=== PATIENT | male | born 1980 | race Caucasian/White ===

== ENCOUNTER 2016-10-19 14:53 | Emergency (ER) | payer BC ==
[2016-10-19 15:11] VITALS: O2SAT 98
--- NOTE | 2016-10-19 15:16 | ERPHSYRPT ---
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 states the bleeding is uncontrolled. denies pain. Triage Nursing Assessment: PT IS AOX3, AMBULATORY TO COT WITH NO DIFFICULTIES, RESPS ARE EASY AND NON LABORED, SKIN IS PWD, PULSES ARE STRONG AND REGULAR. PT T -SHIRT IS SATURATED WITH BLOOD WELL A TOWEL FROM HOME. A MOLE IS NOTED TO THE BACK THAT HAS BEEN LACERATED WHILE PT WAS SHAVING. 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 ACTIVE BLEEDING IS PRESENT TO THE SITE. Physician History: 36 y/o male comes to the ER with bleeding of the right mid back after shaving his back with a blade and sliced a skin tag. Pt admits that he has not been able to control the bleeding. Pt is not on any blood thinners and has no history of bleeding disorders. Pt also denies any pain of the back. Pt does not remember the last time he had a tetanus shot. Timing/Duration: today Allergies/Adverse Reactions: No Known Drug Allergies Allergy (Unverified 10/19/16 15:12) Home Medications: No Reportable Medications [No Reported Medications] 10/19/16 [History] Hx Tetanus, Diphtheria Vaccination/Date Given: No Hx Influenza Vaccination/Date Given: No Hx Pneumococcal Vaccination/Date Given: No Immunizations Up to Date: Yes - Review of Systems Constitutional: No Fever, No Chills Eyes: No Symptoms Ears, Nose, & Throat: No Symptoms Respiratory: No Cough, No Dyspnea Cardiac: No Chest Pain, No Edema, No Syncope Abdominal/Gastrointestinal: No Abdominal Pain, No Nausea, No Vomiting, No Diarrhea Genitourinary Symptoms: No Dysuria Musculoskeletal: No Back Pain, No Neck Pain Skin: Skin Lesions, No Rash Neurological: No Dizziness, No Focal Weakness, No Sensory Changes Psychological: No Symptoms Endocrine: No Symptoms Hematologic/Lymphatic: Easy Bleeding All Other Systems: Reviewed and Negative - Social History Smoking Status: Never smoker Patient Lives Alone: No - Nursing Vital Signs Nursing Vital Signs: Initial Vital Signs Temperature 97.9 F Respiratory Rate 18 Blood Pressure [Right Arm] 160/107 Pain Intensity 0 - Physical Exam General Appearance: no apparent distress, alert Eye Exam: PERRL/EOMI, eyes nml inspection Ears, Nose, Throat Exam: normal ENT inspection, TMs normal, pharynx normal, moist mucous membranes Neck Exam: normal inspection, non-tender, supple, full range of motion Respiratory Exam: normal breath sounds, lungs clear, No respiratory distress Cardiovascular Exam: regular rate/rhythm, normal heart sounds, normal peripheral pulses Gastrointestinal/Abdomen Exam: soft, normal bowel sounds, No tenderness, No mass Back Exam: normal inspection, normal range of motion, No CVA tenderness, No vertebral tenderness Extremity Exam: normal inspection, normal range of motion, pelvis stable Neurologic Exam: alert, oriented x 3, cooperative, normal mood/affect, nml cerebellar function, nml station & gait, sensation nml, No motor deficits Skin Exam: normal color, warm, dry, other (skin tag with active bleeding), No rash Lymphatic Exam: No adenopathy SpO2: 98 Oxygen Delivery: Room Air - Course Nursing assessment & vital signs reviewed: Yes Ordered Tests: Medication Summary Discontinued Medications Generic Name Dose Route Start Last Admin Trade Name Freq PRN Reason Stop Dose Admin Diphtheria/Tetanus/Acell Pertussis 0.5 ml 10/19/16 15:17 10/19/16 15:22 Adacel Vial IM 10/19/16 15:18 0.5 ml .ONCE ONE Administration Diphtheria/Tetanus/Acell Pertussis Confirm 10/19/16 15:23 Adacel Vial Administered 10/19/16 15:24 Dose 0.5 ml IM .STK-MED ONE Lidocaine HCl Confirm 10/19/16 15:30 Xylocaine 1% Hcl 20 Ml Mdv Administered 10/19/16 15:31 Dose 5 ml .ROUTE .STK-MED ONE - Progress Progress: improved Progress Note: 10/19/16 15:42 Pt had pressure for 20 mins as well as surgicel with no relief of bleeding. Pt had 3 stitches placed which stopped the bleeding. Pt had a boostrix and will be d/c home - Departure Time of Disposition: 15:43 Departure Disposition: Home Clinical Impression: Skin tag Condition: Stable Critical Care Time: No Instructions: Skin Lesion Removal Additional Instructions: Return to the ER if you should have worsening bleeding.
[2016-10-19] MEDS ORDERED: Adacel Vial IM ONE ×2 (15:17→15:23)
[2016-10-19] MEDS ORDERED: XYLOCAINE 1% HCL 20 ML MDV ONE (15:30)
[2016-10-19] MEDS ORDERED: BACIGUENT PACKET TP ONE (15:54)
[2016-10-19 16:04] VITALS: BP 121/60; PULSE 68
[2016-10-19] MEDS ORDERED: XYLOCAINE 1% HCL 20 ML MDV IJ ONE (16:11)
== END 2016-10-19 15:58 | disposition home or self-care (01) ==
LOC: ED 14:53
PROC: 0HQ6XZZ Repair Back Skin, External Approach (ICD-10-PCS; principal; 2016-10-19)
DX: L91.8 Other hypertrophic disorders of the skin (principal)
CPT/HCPCS: 12001; 90471; 90715; 99284